=== PATIENT | female | born 1990 | race Caucasian/White ===

== ENCOUNTER 2017-05-05 21:10 | Outpatient (CLI) | payer SELFPAY ==
[~2017-05-05] VITALS: Ht 170.2 cm; Wt 113.0 kg
== END 2017-05-05 23:28 | disposition home or self-care (01) ==
LOC: LDOP 21:10
PROVIDERS: ATTEND Student in an Organized Health Care Education/Training Program
DX: O26.893 Other specified pregnancy related conditions, third trimester (principal); O99.333 Smoking (tobacco) complicating pregnancy, third trimester; R10.9 Unspecified abdominal pain; F17.210 Nicotine dependence, cigarettes, uncomplicated; Z3A.00 Weeks of gestation of pregnancy not specified
CPT/HCPCS: 59025; 99211; G0463